=== PATIENT | male | born 1970 | race Caucasian/White ===

== ENCOUNTER 2021-05-16 17:57 | Emergency (ER) | payer OTHER ==
[2021-05-16 19:38] LABS: HEMOGLOBIN 15.2 gm/dl (14.0-17.5); RED BLOOD COUNT 5.05 M/UL (4.20-5.50); WHITE BLOOD COUNT 8.7 K/UL (4.5-11.0)
[2021-05-16 20:04] LABS: BUN/CREATININE RATIO 15 (0-10)
== END 2021-05-16 21:43 | disposition left against medical advice (07) ==
LOC: ER1 17:57
PROVIDERS: Physician Assistant Medical
DX: R07.9 Chest pain, unspecified (principal); I51.9 Heart disease, unspecified; F17.210 Nicotine dependence, cigarettes, uncomplicated; Z20.822 Contact with and (suspected) exposure to COVID-19
CPT/HCPCS: 71045; 80053; 82550; 82553; 83874; 84484; 85025; 93005; 99284; U0002